=== PATIENT | male | born 1975 | race Caucasian/White ===

== ENCOUNTER 2017-08-09 20:27 | Observation (INO) | payer OTHER ==
[2017-08-09] MEDS ORDERED: Pantoprazole 80 MG in Sodium Chloride 0.9% 10 ML IVPUSH ONE (20:44)
[2017-08-09] MEDS ORDERED: Alum Hydrox/Mag Hydrox/Simeth 15 ML, Metoclopramide 5 MG, Lidocaine 2% 5 ML PO ONE ×3 (20:44)
[2017-08-09] MEDS ORDERED: Sodium Chloride 0.9% 1,000 ML IV ONE (20:44)
[2017-08-09 21:33] LABS: CHLORIDE,CL 108 mmol/L (98-110); SODIUM,NA 138 mmol/L (136-146)
[2017-08-09] MEDS ORDERED: Ketorolac 30 MG/ML SDV IVPUSH ONE (21:42)
--- NOTE | 2017-08-09 21:54 | EDM.PDOC ---
<Reema Starkey - Last Filed: 08/09/17 21:49> ED HPI GENERAL MEDICAL PROBLEM - General Chief Complaint: Abdominal Pain Stated Complaint: ABDOMINAL PAIN Time Seen by Provider: 08/09/17 20:45 Source of Information: Reports: Patient History Limitations: Reports: No Limitations - History of Present Illness INITIAL COMMENTS - FREE TEXT/NARRATIVE: HISTORY AND PHYSICAL: History of present illness: [Patient comes to the emergency room complaining of abdominal pain. States that the symptoms started one hour and came on suddenly while he was watching TV. Pain starts in his epigastric area and moves throughout his abdomen. No history of abdominal pain or surgeries. He's had no nausea or vomiting. Denies any known family history of gallbladder disease. Has a history of irritable bowel with frequent diarrhea. Had normal bowel movements today. Appetite is been normal. No recent illness or infection. No cough, chest pain, shortness of breath or difficulty breathing. He has had some low back discomfort for the past couple of weeks but he does not believe this is related to his abdominal pain. Father recently with history of CVD and CAD] Review of systems: As per history of present illness and below otherwise all systems reviewed and negative. Past medical history: As per history of present illness and as reviewed below otherwise noncontributory. Surgical history: As per history of present illness and as reviewed below otherwise noncontributory. Social history: No reported history of drug or alcohol abuse. Family history: As per history of present illness and as reviewed below otherwise noncontributory. Physical exam: Gen.: Well-developed well-nourished male in no acute distress. Certainly appears nontoxic and is not diaphoretic. HEENT: Atraumatic, normocephalic. Oral mucous membranes are pink and moist. His neck is supple and there is no lymphadenopathy. Lungs: Clear to auscultation, breath sounds equal bilaterally. Heart: S1S2, regular rate and rhythm. Abdomen: Bowel sounds are normoactive throughout. His abdomen is soft and nondistended. He is tender throughout his entire abdomen but is significantly worse with palpation over his epigastric and right upper quadrant areas. No guarding masses or rebound. No CVA tenderness. for costovertebral tenderness. Pelvis: Stable nontender. Genitourinary: Deferred. Rectal: Deferred. Extremities: Atraumatic, negative for cords or calf pain. No cyanosis or edema to feet or lower legs. Neurovascular unremarkable. Neuro: Awake, alert, oriented. Motor and sensory unremarkable throughout. Exam nonfocal. Diagnostics: [CBC, CMP, UA, amylase, lipase, EKG, troponin, abdominal ultrasound] Therapeutics: [GI cocktail, Protonix 80 mg IV, 1 L normal saline, Toradol 30 mg IV] Impression: [] Plan: [] Definitive disposition and diagnosis as appropriate pending reevaluation and review of above. epigastric Pain Score (Numeric/FACES): 10 - Related Data Allergies Allergy/AdvReac Type Severity Reaction Status Date / Time No Known Allergies Allergy Verified 08/09/17 21:25 Home Meds: Home Meds . [Unable to Verify Home Med List] 08/09/17 [History] Past Medical History - Past Health History Medical/Surgical History: Denies Medical/Surgical History Social & Family History - Family History Family Medical History: Noncontributory - Tobacco Use Smoking Status *Q: Never Smoker Second Hand Smoke Exposure: No - Alcohol Use Days Per Week of Alcohol Use: 0 - Recreational Drug Use Recreational Drug Use: No ED ROS GENERAL - Review of Systems Review Of Systems: ROS reveals no pertinent complaints other than HPI. ED EXAM, GI/ABD - Physical Exam Exam: See Below Course - Vital Signs Last Recorded V/S: Last Vital Signs Temp 36.5 C 08/10/17 00:11 Pulse 84 08/10/17 00:11 Resp 18 08/10/17 00:11 BP 111/69 08/10/17 00:11 Pulse Ox 96 08/10/17 00:11 - Orders/Labs/Meds Orders: Active Orders 24 hr Category Date Time Status EKG Documentation Completion [RC] STAT Care 08/09/17 20:45 Active Abdomen Ltd [US] Stat Exams 08/09/17 21:42 Taken Abdomen Pelvis wo Cont [CT] Stat Exams 08/09/17 23:03 Taken Chest 2V [CR] Stat Exams 08/09/17 23:03 Taken DRUG SCREEN, URINE [URCHEM] Stat Lab 08/10/17 00:17 Uncollected Labs: Laboratory Tests 08/09/17 08/09/17 08/09/17 Range/Units 21:00 21:00 21:11 WBC 15.42 H (4.0-11.0) K/uL RBC 5.52 (4.50-5.90) M/uL Hgb 16.5 (13.0-17.0) g/dL Hct 48.5 (38.0-50.0) % MCV 87.9 (80.0-98.0) fL MCH 29.9 (27.0-32.0) pg MCHC 34.0 (31.0-37.0) g/dL RDW Std Deviation 44.0 (28.0-62.0) fl RDW Coeff of Paula 14 (11.0-15.0) % Plt Count 267 (150-400) K/uL MPV 10.80 (7.40-12.00) fL Neut % (Auto) 89.5 H (48.0-80.0) % Lymph % (Auto) 6.2 L (16.0-40.0) % Schleicher % (Auto) 3.0 (0.0-15.0) % Eos % (Auto) 1.0 (0.0-7.0) % Baso % (Auto) 0.3 (0.0-1.5) % Neut # (Auto) 13.8 H (1.4-5.7) K/uL Lymph # (Auto) 1.0 (0.6-2.4) K/uL Schleicher # (Auto) 0.5 (0.0-0.8) K/uL Eos # (Auto) 0.2 (0.0-0.7) K/uL Baso # (Auto) 0.1 (0.0-0.1) K/uL Nucleated RBC % 0.0 /100WBC Nucleated RBCs # 0 K/uL Sodium 138 (136-146) mmol/L Potassium 4.2 (3.5-5.1) mmol/L Chloride 108 (98-110) mmol/L Carbon Dioxide 18 L (21-31) mmol/L BUN 27 H (6.0-23.0) mg/dL Creatinine 1.1 (0.6-1.5) mg/dL Est Cr Clr Drug Dosing TNP Estimated GFR (MDRD) > 60.0 ml/min Glucose 100 (60-110) mg/dL Calcium 9.4 (8.8-10.8) mg/dL Total Bilirubin 0.9 (0.1-1.5) mg/dL AST 38 (5-40) IU/L ALT 48 (8-54) IU/L Alkaline Phosphatase 104 (40-150) Troponin I < 0.10 (0.0-0.29) NG/ML Total Protein 8.0 (6.0-8.0) g/dL Albumin 4.4 (3.5-5.0) g/dL Globulin 3.6 H (2.0-3.5) g/dL Albumin/Globulin Ratio 1.2 L (1.3-2.8) Lipase 30 (7-80) U/L Urine Color DARK YELLOW Urine Appearance HAZY Urine pH 5.5 (5.0-8.0) Ur Specific [place] 1.015 (1.001-1.035) Urine Protein NEGATIVE (NEGATIVE) mg/dL Urine Glucose (UA) NEGATIVE (NEGATIVE) mg/dL Urine Ketones NEGATIVE (NEGATIVE) mg/dL Urine Occult Blood NEGATIVE (NEGATIVE) Urine Nitrite NEGATIVE (NEGATIVE) Urine Bilirubin NEGATIVE (NEGATIVE) Urine Urobilinogen 0.2 (<2.0) EU/dL Ur Leukocyte Esterase NEGATIVE (NEGATIVE) Urine RBC 0-1 (0-2/HPF) Urine WBC 0-1 (0-5/HPF) Ur Epithelial Cells NOT SEEN (NONE-FEW) Urine Bacteria RARE (NEGATIVE) Meds: Medications Discontinued Medications Generic Name Dose Route Start Last Admin Trade Name Rohanq PRN Reason Stop Dose Admin Al Hydroxide/Mg Hydroxide 15 0 ml 08/09/17 20:44 08/09/17 21:05 ml/ Metoclopramide HCl 5 mg/ PO 08/09/17 20:45 25 each Lidocaine HCl 5 ml ONETIME ONE Administration Hydromorphone HCl 1 mg 08/09/17 22:40 08/09/17 22:53 Dilaudid IVPUSH 08/09/17 22:41 1 mg ONETIME ONE Administration Pantoprazole Sodium 80 mg/ 10 mls @ 300 mls/hr 08/09/17 20:44 08/09/17 21:00 Sodium Chloride IVPUSH 08/09/17 20:45 300 mls/hr NOW ONE Administration Sodium Chloride 1,000 mls @ 999 mls/hr 08/09/17 20:44 08/09/17 21:00 Normal Saline IV 08/09/17 21:44 999 mls/hr STAT ONE Administration Ketorolac Tromethamine 30 mg 08/09/17 21:42 08/09/17 21:50 Toradol IVPUSH 08/09/17 21:43 30 mg ONETIME ONE Administration Departure - Departure Disposition: Refer to Observation Clinical Impression: Abdominal pain - Discharge Information Referrals: Fiona Chavez DO [Primary Care Provider] - Forms: ED Department Discharge - My Orders Last 24 Hours: My Active Orders 08/09/17 23:03 Abdomen Pelvis wo Cont [CT] Stat Chest 2V [CR] Stat 08/10/17 00:17 DRUG SCREEN, URINE [URCHEM] Stat - Assessment/Plan Last 24 Hours: My Active Orders 08/09/17 23:03 Abdomen Pelvis wo Cont [CT] Stat Chest 2V [CR] Stat 08/10/17 00:17 DRUG SCREEN, URINE [URCHEM] Stat <Domingo Berman - Last Filed: 08/10/17 00:18> Departure - Departure Time of Disposition: 00:18 Condition: Good
[2017-08-09] MEDS ORDERED: HYDROmorphone 1 MG/ML Syringe IVPUSH ONE (22:40)
[2017-08-10] MEDS ORDERED: Ketorolac 15 MG/ML SDV IVPUSH PRN (00:42)
[2017-08-10] MEDS ORDERED: Lactated Ringers 1,000 ML IV SCH (00:45)
[2017-08-10] MEDS ORDERED: Ondansetron 4 MG/2 ML SDV IVPUSH PRN (00:48)
[2017-08-10 06:09] LABS: CHLORIDE,CL 113 mmol/L (98-110); SODIUM,NA 138 mmol/L (136-146)
--- NOTE | 2017-08-10 09:23 | PCM.SN ---
- Free Text/Narrative Note: hp dict [id number]
--- NOTE | 2017-08-10 10:32 | HP ---
DATE OF : 1975 PRIMARY CARE PHYSICIAN: Fiona Chavez DO CONSULTING QUESTION: Abdominal pain with leukocytosis. HISTORY OF PRESENT ILLNESS: The patient is a 42-year-old gentleman, does not have any abdominal surgery in the past, complaining of 2-1/2 days of acute onset of right upper quadrant pain radiated to the back after having a big meal 2 days ago. Pain did not subside, seek help in the emergency room, and workup CAT scan is unremarkable with normal appendix. The ultrasound shows unremarkable, however, the patient has a white count of 15 and is admitted for pain management as well as observation. PAST MEDICAL HISTORY: Significant for no diabetes, MA, CVA, or hypertension. The patient denied tobacco, alcohol abuse, and no prior abdominal surgery. ALLERGIES: Please refer to nursing for details. MEDICATION: Please refer to nursing for details. PHYSICAL EXAMINATION: GENERAL: A very pleasant, nice gentleman, in no acute distress. HEENT: Normocephalic, atraumatic. Sclerae anicteric. LUNGS: Clear to auscultation. HEART: Regular rate and rhythm. ABDOMEN: Soft, nondistended. No pulsating, tender midline abdominal structure. No hernia appreciated. Nontender with normal bowel sounds. LABORATORY DATA: White count is 7.5 this morning, down from 15. AST and ALT are mildly elevated above 50 to 60. Total bilirubin is 0.5. UA shows no blood. IMPRESSION: Right upper quadrant pain radiated to the back and was slightly elevated transaminase, concern about maybe passing a stone, but for the time being leukocytosis resolved and advised the patient to continue on a nonfatty diet and follow up with me in 1 week from today and likely resolving biliary colic. The patient also has a history of IBS and has frequent diarrhea. As always, thank you for the kind referral. ELLIE / MARILIA /[id number]
--- NOTE | 2017-08-10 13:33 | US ---
EXAM DATE: 08/10/17 PATIENT'S AGE: 42 Patient: ARTUR VENTURA Facility: [place], [place] Site . Site : 1975 Study: US Abdomen [id number] 10:34:30 PM Ordering Physician: Doctor Vu Final Report: INDICATION: Epigastric pain TECHNIQUE: Ultrasound abdomen limited. Sonographic images of the right upper quadrant were obtained using capellan-scale and color Doppler images. COMPARISON: None FINDINGS: Liver: Normal in size and echotexture. No masses. No intrahepatic biliary dilatation. Gallbladder: No stones or sludge. The gallbladder is contracted. No pericholecystic fluid. Common bile duct: 2 mm. Pancreas: Normal. Right kidney: 11.0 cm in length. Normal echotexture and cortex. No masses, stones, or hydronephrosis. IMPRESSION: Unremarkable right upper quadrant ultrasound. Dictated by Ines Carty MD @ Aug 09 2017 10:39PM (Electronic Signature) Report Signed by Proxy. GUILLE
--- NOTE | 2017-08-10 14:23 | CR ---
EXAM DATE: 08/10/17 PATIENT'S AGE: 42 Patient: ARTUR VENTURA Facility: [place], [place] Site . Site : 1975 Study: XRay Chest [id number] 11:27:56 PM Ordering Physician: Doctor Vu Final Report: INDICATION: Pain, shortness of breath TECHNIQUE: Chest 2 views. COMPARISON: None FINDINGS: Cardiovascular and mediastinum: Heart size and vasculature are normal in caliber and appearance. Mediastinum is within normal limits. Lungs and pleural spaces: Lungs are clear. No sign of infiltrate or mass. No sign of pleural effusion. No pneumothorax. Bones and soft tissues: No significant findings. IMPRESSION: No sign of acute disease. Dictated by Ines Carty MD @ Aug 09 2017 11:30PM (Electronic Signature) Report Signed by Proxy. GUILLE
--- NOTE | 2017-08-10 14:24 | CT ---
EXAM DATE: 08/10/17 PATIENT'S AGE: 42 Patient: ARTUR VENTURA Facility: [place], [place] Site . Site : 1975 Study: CT Abdomen/Pelvis [id number] 11:34:53 PM Ordering Physician: Doctor Vu Final Report: INDICATION: Left-sided abdominal pain. TECHNIQUE: CT abdomen and pelvis without contrast. COMPARISON: No prior CT studies for comparison. FINDINGS: Lower chest: Unremarkable. Tiny calcified granuloma at the medial right lung base on series 2 at 2 image 27. Liver: Unremarkable. Spleen: Unremarkable. Pancreas: Unremarkable. Gallbladder and bile ducts: Unremarkable. Adrenal glands: Unremarkable. Kidneys: Unremarkable. No kidney or ureteral stones and no hydronephrosis. GI tract: Unremarkable. Appendix is normal. Minimal diverticulosis. Vascular structures: Unremarkable. Lymph nodes: Unremarkable. Miscellaneous: Unremarkable. No free air or significant free fluid. Pelvic Organs: Unremarkable. Bones: Unremarkable for age. IMPRESSION: Unremarkable noncontrast CT of the abdomen and pelvis. No urinary tract stones, hydronephrosis, or other cause for left-sided abdominal pain. Minimal degree of sigmoid diverticulosis with no acute diverticulitis or free fluid. Normal appendix. Dictated by Jin Miller MD @ 08/09/2017 11:47:03 PM Dictated by: Jin Miller MD @ 08/09/2017 23:47:09 (Electronic Signature) Report Signed by Proxy. [facility]
== END 2017-08-10 09:55 | disposition home or self-care (01) ==
LOC: MW.ED 20:27 → MW.MS 08-10 00:19
PROVIDERS: ADMIT Surgery; ATTEND Surgery
DX: R10.11 Right upper quadrant pain (principal); D72.829 Elevated white blood cell count, unspecified
CPT/HCPCS: 36415; 71020; 74176; 76705; 80053; 80305; 81001; 82150; 83690; 84484; 85025; 93005; 96361; 96374; 96375; 96376; 99285; A9270; C9113; G0378; J1170; J1885; J7040; J7120; 99282

== ENCOUNTER 2018-12-29 01:39 | Observation (INO) | payer SELFPAY ==
--- NOTE | 2018-12-29 01:46 | EDM.PDOC ---
ED HPI GENERAL MEDICAL PROBLEM - General Chief Complaint: Gastrointestinal Problem Stated Complaint: BACK PAIN, VOMITING, DIARRHEA Time Seen by Provider: 12/29/18 05:01 - History of Present Illness INITIAL COMMENTS - FREE TEXT/NARRATIVE: HISTORY AND PHYSICAL: History of present illness: Patient is a 43-year-old white male history of chronic back problems and comes in tonight with back pain nausea vomiting diarrhea that started after he took some Motrin for some lower back discomfort he did this on an empty stomach and feels that may have been the precipitant. There is no fever chills or other complaints Review of systems: As per history of present illness and below otherwise all systems reviewed and negative. Past medical history: As per history of present illness and as reviewed below otherwise noncontributory. Surgical history: As per history of present illness and as reviewed below otherwise noncontributory. Social history: No reported history of drug or alcohol abuse. Family history: As per history of present illness and as reviewed below otherwise noncontributory. Physical exam: HEENT: Atraumatic, normocephalic, pupils reactive, negative for conjunctival pallor or scleral icterus, mucous membranes dry, throat clear, neck supple, nontender, trachea midline. Lungs: Clear to auscultation, breath sounds equal bilaterally, chest nontender. Heart: S1S2, regular, negative for clicks, rubs, or JVD. Abdomen: Soft, nondistended, nontender. Negative for masses or hepatosplenomegaly. Negative for costovertebral tenderness. Pelvis: Stable nontender. Genitourinary: Deferred. Rectal: Deferred. Extremities: Atraumatic, negative for cords or calf pain. Neurovascular unremarkable. Neuro: Awake, alert, oriented. Cranial nerves II through XII unremarkable. Cerebellum unremarkable. Motor and sensory unremarkable throughout. Exam nonfocal. Diagnostics: CBC CMP lipase UA UDS influenza screen Therapeutics: Saline 1 L bolus Zofran 4 mg IV Impression: #1 gastroenteritis #2 dehydration #3 chronic back pain Definitive disposition and diagnosis as appropriate pending reevaluation and review of above. - Related Data Allergies Allergy/AdvReac Type Severity Reaction Status Date / Time No Known Allergies Allergy Verified 12/29/18 01:42 Home Meds: Home Meds Fenofibrate Nanocrystallized [Fenofibrate] 20 mg PO ASDIRECTED 08/10/17 [History ] Testosterone Cypionate [Depo-Testosterone] 200 mg IM ASDIRECTED 08/10/17 [ History] Past Medical History - Past Health History Medical/Surgical History: Denies Medical/Surgical History HEENT History: Reports: None Cardiovascular History: Reports: High Cholesterol Respiratory History: Reports: Sleep Apnea Gastrointestinal History: Reports: Irritable Bowel Syndrome Musculoskeletal History: Reports: Arthritis, Back Pain, Chronic Neurological History: Reports: None Psychiatric History: Reports: None Endocrine/Metabolic History: Reports: None Hematologic History: Reports: None Immunologic History: Reports: None Oncologic (Cancer) History: Reports: None Dermatologic History: Reports: None - Infectious Disease History Infectious Disease History: Reports: None Social & Family History - Family History Family Medical History: Noncontributory HEENT: Reports: None Cardiac: Reports: CAD, High Cholesterol, Hypertension, [place] Respiratory: Reports: None GI: Reports: None : Reports: None OBGYN: Reports: Musculoskeletal: Reports: Arthritis, Gout Neurological: Reports: None Psychiatric: Reports: None Endocrine/Metabolic: Reports: Diabetes, Type I, Diabetes, type II Hematologic: Reports: None Immunologic: Reports: None Dermatologic: Reports: None Oncologic: Reports: Prostate, Skin - Caffeine Use Caffeine Use: Reports: Energy Drinks ED ROS GENERAL - Review of Systems Review Of Systems: ROS reveals no pertinent complaints other than HPI. ED EXAM, GENERAL - Physical Exam Exam: See Below (See dictation) Course - Vital Signs Last Recorded V/S: Last Vital Signs Temp 37.1 C 12/29/18 04:00 Pulse 73 12/29/18 04:00 Resp 18 12/29/18 04:00 BP 87/45 L 12/29/18 04:00 Pulse Ox 97 12/29/18 04:00 - Orders/Labs/Meds Orders: Active Orders 24 hr Category Date Time Status Abdomen Pelvis wo Cont [CT] Stat Exams 12/29/18 02:35 Taken CULTURE BLOOD [BC] Stat Lab 12/29/18 04:13 Received CULTURE BLOOD [BC] Stat Lab 12/29/18 04:20 Received DRUG SCREEN, URINE [URCHEM] Stat Lab 12/29/18 04:50 Received UA RFX ANGELIA AND CULT IF INDIC [URIN] Stat Lab 12/29/18 01:51 Received Levofloxacin/Dextrose 5%-Water [Levaquin in D5W 750 MG/ Med 12/29/18 04:00 Active 150 ML] 750 mg Premix Bag 1 bag IV ONETIME Blood Culture x2 Reflex Set [OM.PC] Stat Oth 12/29/18 03:57 Ordered Medication Orders Levofloxacin/Dextrose 750 mg/ (Premix) 150 mls @ 100 mls/hr IV ONETIME ONE Stop: 12/29/18 05:29 Last Admin: 12/29/18 04:48 Dose: 100 mls/hr Labs: Laboratory Tests 12/29/18 12/29/18 12/29/18 Range/Units 01:57 01:57 04:20 WBC 22.75 H (4.0-11.0) K/uL RBC 6.17 H (4.50-5.90) M/uL Hgb 19.1 H (13.0-17.0) g/dL Hct 54.9 H (38.0-50.0) % MCV 89.0 (80.0-98.0) fL MCH 31.0 (27.0-32.0) pg MCHC 34.8 (31.0-37.0) g/dL RDW Std Deviation 44.9 (28.0-62.0) fl RDW Coeff of Paula 14 (11.0-15.0) % Plt Count 282 (150-400) K/uL MPV 10.50 (7.40-12.00) fL Neut % (Auto) RESIDENTIAL SALES REP Lymph % (Auto) RESIDENTIAL SALES REP Boyle % (Auto) RESIDENTIAL SALES REP Eos % (Auto) RESIDENTIAL SALES REP Baso % (Auto) RESIDENTIAL SALES REP Neut # (Auto) RESIDENTIAL SALES REP Lymph # (Auto) RESIDENTIAL SALES REP Boyle # (Auto) RESIDENTIAL SALES REP Eos # (Auto) RESIDENTIAL SALES REP Baso # (Auto) RESIDENTIAL SALES REP Add Manual Diff YES Neutrophils % (Manual) 90 H (48.0-80.0) % Band Neutrophils % 6 % Lymphocytes % (Manual) 1 L (16.0-40.0) % Monocytes % (Manual) 3 (0.0-15.0) % Nucleated RBC % 0.0 /100WBC Absolute Seg Neuts 20.5 H (1.4-5.7) Band Neutrophils # 1.4 Lymphocytes # (Manual) 0.2 L (0.6-2.4) Monocytes # (Manual) 0.7 (0.0-0.8) Nucleated RBCs # 0 K/uL Lactate 1.3 (0.20-2.00) mmol/L Sodium 139 (136-148) mmol/L Potassium 4.5 (3.5-5.1) mmol/L Chloride 101 (98-107) mmol/L Carbon Dioxide 23.3 (21.0-32.0) mmol/L BUN 25 H (7.0-18.0) mg/dL Creatinine 2.3 H (0.8-1.3) mg/dL Est Cr Clr Drug Dosing 42.76 mL/min Estimated GFR (MDRD) 31.2 ml/min Glucose 162 H (74-106) mg/dL Calcium 10.7 H (8.5-10.1) mg/dL Total Bilirubin 1.1 H (0.2-1.0) mg/dL AST 21 (15-37) IU/L ALT 48 (14-63) IU/L Alkaline Phosphatase 83 (46-116) U/L Total Protein 9.2 H (6.4-8.2) g/dL Albumin 4.9 (3.4-5.0) g/dL Globulin 4.3 H (2.6-4.0) g/dL Albumin/Globulin Ratio 1.1 (0.9-1.6) Lipase 129 (73-393) U/L Urine Color Urine Appearance Urine pH (5.0-8.0) Ur Specific [place] (1.001-1.035) Urine Protein (NEGATIVE) mg/dL Urine Glucose (UA) (NEGATIVE) mg/dL Urine Ketones (NEGATIVE) mg/dL Urine Occult Blood (NEGATIVE) Urine Nitrite (NEGATIVE) Urine Bilirubin (NEGATIVE) Urine Urobilinogen (<2.0) EU/dL Ur Leukocyte Esterase (NEGATIVE) 12/29/18 Range/Units 04:57 WBC (4.0-11.0) K/uL RBC (4.50-5.90) M/uL Hgb (13.0-17.0) g/dL Hct (38.0-50.0) % MCV (80.0-98.0) fL MCH (27.0-32.0) pg MCHC (31.0-37.0) g/dL RDW Std Deviation (28.0-62.0) fl RDW Coeff of Paula (11.0-15.0) % Plt Count (150-400) K/uL MPV (7.40-12.00) fL Neut % (Auto) Lymph % (Auto) Boyle % (Auto) Eos % (Auto) Baso % (Auto) Neut # (Auto) Lymph # (Auto) [place] # (Auto) Eos # (Auto) Baso # (Auto) Add Manual Diff Neutrophils % (Manual) (48.0-80.0) % Band Neutrophils % % Lymphocytes % (Manual) (16.0-40.0) % Monocytes % (Manual) (0.0-15.0) % Nucleated RBC % /100WBC Absolute Seg Neuts (1.4-5.7) Band Neutrophils # Lymphocytes # (Manual) (0.6-2.4) Monocytes # (Manual) (0.0-0.8) Nucleated RBCs # K/uL Lactate (0.20-2.00) mmol/L Sodium (136-148) mmol/L Potassium (3.5-5.1) mmol/L Chloride (98-107) mmol/L Carbon Dioxide (21.0-32.0) mmol/L BUN (7.0-18.0) mg/dL Creatinine (0.8-1.3) mg/dL Est Cr Clr Drug Dosing mL/min Estimated GFR (MDRD) ml/min Glucose (74-106) mg/dL Calcium (8.5-10.1) mg/dL Total Bilirubin (0.2-1.0) mg/dL AST (15-37) IU/L ALT (14-63) IU/L Alkaline Phosphatase (46-116) U/L Total Protein (6.4-8.2) g/dL Albumin (3.4-5.0) g/dL Globulin (2.6-4.0) g/dL Albumin/Globulin Ratio (0.9-1.6) Lipase (73-393) U/L Urine Color YELLOW Urine Appearance CLOUDY Urine pH 5.5 (5.0-8.0) Ur Specific [place] >= 1.030 (1.001-1.035) Urine Protein >=300 H (NEGATIVE) mg/dL Urine Glucose (UA) NEGATIVE (NEGATIVE) mg/dL Urine Ketones NEGATIVE (NEGATIVE) mg/dL Urine Occult Blood TRACE-INTACT H (NEGATIVE) Urine Nitrite NEGATIVE (NEGATIVE) Urine Bilirubin MODERATE H (NEGATIVE) Urine Urobilinogen 0.2 (<2.0) EU/dL Ur Leukocyte Esterase NEGATIVE (NEGATIVE) Meds: Medications Generic Name Dose Route Start Last Admin Trade Name Freq PRN Reason Stop Dose Admin Levofloxacin/Dextrose 750 mg/ 150 mls @ 100 mls/hr 12/29/18 04:00 12/29/18 04 :48 Premix IV 12/29/18 05:29 100 mls/hr ONETIME ONE Administration Discontinued Medications Generic Name Dose Route Start Last Admin Trade Name Rohanq PRN Reason Stop Dose Admin Hydromorphone HCl 1 mg 12/29/18 02:40 12/29/18 02:44 Dilaudid IVPUSH 12/29/18 02:41 1 mg ONETIME ONE Administration Sodium Chloride 1,000 mls @ 999 mls/hr 12/29/18 01:49 12/29/18 02:05 Normal Saline IV 12/29/18 02:49 999 mls/hr .Bolus ONE Administration Piperacillin Sod/Tazobactam 50 mls @ 100 mls/hr 12/29/18 04:00 12/29/18 04:10 Sod 3.375 gm/ Sodium Chloride IV 12/29/18 04:29 100 mls/hr ONETIME ONE Administration Ketorolac Tromethamine 30 mg 12/29/18 02:08 12/29/18 02:27 Toradol IVPUSH 12/29/18 02:09 30 mg ONETIME ONE Administration Ondansetron HCl 4 mg 12/29/18 01:49 12/29/18 02:05 Zofran IVPUSH 12/29/18 01:50 4 mg ONETIME ONE Administration Departure - Departure Time of Disposition: 05:01 Disposition: Refer to Observation Condition: Good Clinical Impression: Enteritis, Elevated serum creatinine - Discharge Information Referrals: Santo Srinivasan MD [Primary Care Provider] - Forms: ED Department Discharge - My Orders Last 24 Hours: My Active Orders 12/29/18 01:51 UA RFX ANGELIA AND CULT IF INDIC [URIN] Stat 12/29/18 02:35 Abdomen Pelvis wo Cont [CT] Stat 12/29/18 03:57 Blood Culture x2 Reflex Set [OM.PC] Stat 12/29/18 04:00 Levofloxacin/Dextrose 5%-Water [Levaquin in D5W 750 MG/150 ML] 750 mg Premix Bag 1 bag IV ONETIME 12/29/18 04:13 CULTURE BLOOD [BC] Stat 12/29/18 04:20 CULTURE BLOOD [BC] Stat 12/29/18 04:50 DRUG SCREEN, URINE [URCHEM] Stat - Assessment/Plan Last 24 Hours: My Active Orders 12/29/18 01:51 UA RFX ANGELIA AND CULT IF INDIC [URIN] Stat 12/29/18 02:35 Abdomen Pelvis wo Cont [CT] Stat 12/29/18 03:57 Blood Culture x2 Reflex Set [OM.PC] Stat 12/29/18 04:00 Levofloxacin/Dextrose 5%-Water [Levaquin in D5W 750 MG/150 ML] 750 mg Premix Bag 1 bag IV ONETIME 12/29/18 04:13 CULTURE BLOOD [BC] Stat 12/29/18 04:20 CULTURE BLOOD [BC] Stat 12/29/18 04:50 DRUG SCREEN, URINE [URCHEM] Stat
[2018-12-29] MEDS ORDERED: Ondansetron 4 MG/2 ML SDV IVPUSH ONE (01:49)
[2018-12-29] MEDS ORDERED: Sodium Chloride 0.9% 1,000 ML IV ONE (01:49)
[2018-12-29] MEDS ORDERED: Ketorolac 30 MG/ML SDV IVPUSH ONE (02:08)
--- NOTE | 2018-12-29 02:33 | CR ---
INDICATION: Chest pain and vomiting COMPARISON: None available. FINDINGS: An erect single view of the chest was obtained at 0157 hours. The lungs are clear. No focal or diffuse infiltrates are present. There is no sign of aspiration. The heart is normal in size. The mediastinum is normal in appearance. The osseous structures are normal in appearance for the patient`s age. IMPRESSION: Normal chest single view. Dictated by Abhay Carpio MD @ Dec 29 2018 2:31AM Signed by Dr. Abhay Carpio @ Dec 29 2018 2:32AM
[2018-12-29] MEDS ORDERED: HYDROmorphone 1 MG/ML Syringe IVPUSH ONE (02:40)
[2018-12-29] MEDS ORDERED: Piperacillin/Tazobactam 3.375 GM in Sodium Chloride 0.9% 50 ML IV ONE (04:00)
[2018-12-29] MEDS ORDERED: Levofloxacin/Dextrose 5%-Water 750 MG in Premix Bag 1 BAG IV ONE (04:00)
[2018-12-29] MEDS: Sodium Chloride 0.9% 1,000 ML IV ONE ×2 (05:15→05:16)
[2018-12-29] MEDS ORDERED: Acetaminophen 325 MG Tab PO PRN (06:19)
[2018-12-29] MEDS ORDERED: Ketorolac 30 MG/ML SDV IM PRN (06:19)
[2018-12-29] MEDS ORDERED: Ondansetron 4 MG Tab.DIS PO PRN (06:19)
[2018-12-29] MEDS ORDERED: Sodium Chloride 0.9% 1,000 ML IV SCH (06:30)
--- NOTE | 2018-12-29 09:39 | PCM.HP ---
<Samantha Day - Last Filed: 12/29/18 13:10> H&P History of Present Illness - General Date of Service: 12/29/18 Admit Problem/Dx: Admission Diagnosis/Problem Admission Diagnosis/Problem Enteritis - History of Present Illness Initial Comments - Free Text/Narative: The patient is a 43 year old male who presented to the ER with 2-3 hour history of back pain, nausea,vomiting, and diarrhea. He has chronic back pain. He denies any fever/chills, black/bloody stools, abdominal pain, shortness of breath, or chest pain. He denies recent sick contacts or exposure to new foods. Since admission he has not had any additional symptoms of nausea, vomiting, or diarrhea. He states his back pain is improved. In the ER, workup found an elevated WBC of 22.75, elevated hemoglobin of 19.1, and elevated creatinine of 2.3. A CT of the ab/pelvis showed mild diffuse dilation of small bowel suggestive of enteritis. He was given dose of Levaquin , Zosyn, Zofran and started on IVF. lower back Pain Score (Numeric/FACES): 6 - Related Data Allergies/Adverse Reactions: Allergies Allergy/AdvReac Type Severity Reaction Status Date / Time No Known Allergies Allergy Verified 12/29/18 01:42 Home Medications: Home Meds Fenofibrate Nanocrystallized [Fenofibrate] 20 mg PO ASDIRECTED 08/10/17 [History ] Testosterone Cypionate [Depo-Testosterone] 200 mg IM ASDIRECTED 08/10/17 [ History] Past Medical History - Past Health History Medical/Surgical History: Denies Medical/Surgical History HEENT History: Reports: None Cardiovascular History: Reports: High Cholesterol Respiratory History: Reports: Sleep Apnea Other Respiratory History: hx sleep apnea, denies currently Gastrointestinal History: Reports: Irritable Bowel Syndrome Musculoskeletal History: Reports: Arthritis, Back Pain, Chronic Neurological History: Reports: None Psychiatric History: Reports: None Other Endocrine/Metabolic History: low T Hematologic History: Reports: None Immunologic History: Reports: None Oncologic (Cancer) History: Reports: None Dermatologic History: Reports: None - Infectious Disease History Infectious Disease History: Reports: None Social & Family History - Family History Family Medical History: Noncontributory HEENT: Reports: None Cardiac: Reports: CAD, High Cholesterol, Hypertension, [place] Respiratory: Reports: None GI: Reports: None : Reports: None OBGYN: Reports: Musculoskeletal: Reports: Arthritis, Gout Neurological: Reports: None Psychiatric: Reports: None Endocrine/Metabolic: Reports: Diabetes, Type I, Diabetes, type II Hematologic: Reports: None Immunologic: Reports: None Dermatologic: Reports: None Oncologic: Reports: Prostate, Skin - Tobacco Use Smoking Status *Q: Never Smoker Second Hand Smoke Exposure: No - Caffeine Use Caffeine Use: Reports: Energy Drinks - Recreational Drug Use Recreational Drug Use: No H&P Review of Systems - Review of Systems: Review Of Systems: See Below General: Reports: No Symptoms HEENT: Reports: No Symptoms Pulmonary: Reports: No Symptoms Cardiovascular: Reports: No Symptoms Gastrointestinal: Reports: Diarrhea, Nausea, Vomiting. Denies: Abdominal Pain Genitourinary: Reports: No Symptoms Musculoskeletal: Reports: Back Pain Skin: Reports: No Symptoms Psychiatric: Reports: No Symptoms Neurological: Reports: No Symptoms Hematologic/Lymphatic: Reports: No Symptoms Immunologic: Reports: No Symptoms Exam - Exam Exam: See Below - Vital Signs Vital Signs: Last Vital Signs Temp 98.3 F 12/29/18 07:25 Pulse 85 12/29/18 07:25 Resp 16 12/29/18 07:25 BP 125/58 L 12/29/18 07:25 Pulse Ox 96 12/29/18 07:25 Weight: 94.438 kg - Exam General: Alert, Oriented, Cooperative HEENT: Conjunctiva Clear, EOMI, Mucosa Moist & [place], Posterior Pharynx Clear, Pupils Equal, Pupils Reactive Lungs: Clear to Auscultation, Normal Respiratory Effort Cardiovascular: Regular Rate, Regular Rhythm GI/Abdominal Exam: Normal Bowel Sounds, Soft, Non-Tender, No Distention Extremities: No Pedal Edema Skin: Warm, Dry, Intact Neuro Extensive - Mental Status: Alert, Oriented x3 Psychiatric: Alert, Normal Affect, Normal Mood - Patient Data Lab Results Last 24 hrs: Laboratory Results - last 24 hr 12/29/18 12/29/18 12/29/18 Range/Units 01:57 01:57 04:20 WBC 22.75 H (4.0-11.0) K/uL RBC 6.17 H (4.50-5.90) M/uL Hgb 19.1 H (13.0-17.0) g/dL Hct 54.9 H (38.0-50.0) % MCV 89.0 (80.0-98.0) fL MCH 31.0 (27.0-32.0) pg MCHC 34.8 (31.0-37.0) g/dL RDW Std Deviation 44.9 (28.0-62.0) fl RDW Coeff of Paula 14 (11.0-15.0) % Plt Count 282 (150-400) K/uL MPV 10.50 (7.40-12.00) fL Neut % (Auto) MICA PLATE LAYER Lymph % (Auto) MICA PLATE LAYER [place] % (Auto) MICA PLATE LAYER Eos % (Auto) MICA PLATE LAYER Baso % (Auto) MICA PLATE LAYER Neut # (Auto) MICA PLATE LAYER Lymph # (Auto) MICA PLATE LAYER [place] # (Auto) MICA PLATE LAYER Eos # (Auto) MICA PLATE LAYER Baso # (Auto) MICA PLATE LAYER Add Manual Diff YES Neutrophils % (Manual) 90 H (48.0-80.0) % Band Neutrophils % 6 % Lymphocytes % (Manual) 1 L (16.0-40.0) % Monocytes % (Manual) 3 (0.0-15.0) % Nucleated RBC % 0.0 /100WBC Absolute Seg Neuts 20.5 H (1.4-5.7) Band Neutrophils # 1.4 Lymphocytes # (Manual) 0.2 L (0.6-2.4) Monocytes # (Manual) 0.7 (0.0-0.8) Nucleated RBCs # 0 K/uL Lactate 1.3 (0.20-2.00) mmol/L Sodium 139 (136-148) mmol/L Potassium 4.5 (3.5-5.1) mmol/L Chloride 101 (98-107) mmol/L Carbon Dioxide 23.3 (21.0-32.0) mmol/L BUN 25 H (7.0-18.0) mg/dL Creatinine 2.3 H (0.8-1.3) mg/dL Est Cr Clr Drug Dosing 42.76 mL/min Estimated GFR (MDRD) 31.2 ml/min Glucose 162 H (74-106) mg/dL Calcium 10.7 H (8.5-10.1) mg/dL Total Bilirubin 1.1 H (0.2-1.0) mg/dL AST 21 (15-37) IU/L ALT 48 (14-63) IU/L Alkaline Phosphatase 83 (46-116) U/L Total Protein 9.2 H (6.4-8.2) g/dL Albumin 4.9 (3.4-5.0) g/dL Globulin 4.3 H (2.6-4.0) g/dL Albumin/Globulin Ratio 1.1 (0.9-1.6) Lipase 129 (73-393) U/L Urine Color Urine Appearance Urine pH (5.0-8.0) Ur Specific [place] (1.001-1.035) Urine Protein (NEGATIVE) mg/dL Urine Glucose (UA) (NEGATIVE) mg/dL Urine Ketones (NEGATIVE) mg/dL Urine Occult Blood (NEGATIVE) Urine Nitrite (NEGATIVE) Urine Bilirubin (NEGATIVE) Urine Ictotest Urine Urobilinogen (<2.0) EU/dL Ur Leukocyte Esterase (NEGATIVE) Urine RBC (0-2/HPF) Urine WBC (0-5/HPF) Ur Epithelial Cells (NONE-FEW) Calcium Oxalate Crystal (NEGATIVE) Amorphous Sediment (NEGATIVE) Urine Bacteria (NEGATIVE) Hyaline Casts (0-2/LPF) Coarse Granular Casts (NEGATIVE) Urine Mucus (NONE-MOD) Urine Opiates Screen (NEGATIVE) Ur Oxycodone Screen (NEGATIVE) Urine Methadone Screen (NEGATIVE) Ur Barbiturates Screen (NEGATIVE) Ur Phencyclidine Scrn (NEGATIVE) Ur Amphetamine Screen (NEGATIVE) U Methamphetamines Scrn (NEGATIVE) U Benzodiazepines Scrn (NEGATIVE) U Cocaine Metab Screen (NEGATIVE) U Marijuana (THC) Screen (NEGATIVE) 12/29/18 12/29/18 Range/Units 04:50 04:57 WBC (4.0-11.0) K/uL RBC (4.50-5.90) M/uL Hgb (13.0-17.0) g/dL Hct (38.0-50.0) % MCV (80.0-98.0) fL MCH (27.0-32.0) pg MCHC (31.0-37.0) g/dL RDW Std Deviation (28.0-62.0) fl RDW Coeff of Paula (11.0-15.0) % Plt Count (150-400) K/uL MPV (7.40-12.00) fL Neut % (Auto) Lymph % (Auto) [place] % (Auto) Eos % (Auto) Baso % (Auto) Neut # (Auto) Lymph # (Auto) [place] # (Auto) Eos # (Auto) Baso # (Auto) Add Manual Diff Neutrophils % (Manual) (48.0-80.0) % Band Neutrophils % % Lymphocytes % (Manual) (16.0-40.0) % Monocytes % (Manual) (0.0-15.0) % Nucleated RBC % /100WBC Absolute Seg Neuts (1.4-5.7) Band Neutrophils # Lymphocytes # (Manual) (0.6-2.4) Monocytes # (Manual) (0.0-0.8) Nucleated RBCs # K/uL Lactate (0.20-2.00) mmol/L Sodium (136-148) mmol/L Potassium (3.5-5.1) mmol/L Chloride (98-107) mmol/L Carbon Dioxide (21.0-32.0) mmol/L BUN (7.0-18.0) mg/dL Creatinine (0.8-1.3) mg/dL Est Cr Clr Drug Dosing mL/min Estimated GFR (MDRD) ml/min Glucose (74-106) mg/dL Calcium (8.5-10.1) mg/dL Total Bilirubin (0.2-1.0) mg/dL AST (15-37) IU/L ALT (14-63) IU/L Alkaline Phosphatase (46-116) U/L Total Protein (6.4-8.2) g/dL Albumin (3.4-5.0) g/dL Globulin (2.6-4.0) g/dL Albumin/Globulin Ratio (0.9-1.6) Lipase (73-393) U/L Urine Color YELLOW Urine Appearance CLOUDY Urine pH 5.5 (5.0-8.0) Ur Specific [place] >= 1.030 (1.001-1.035) Urine Protein >=300 H (NEGATIVE) mg/dL Urine Glucose (UA) NEGATIVE (NEGATIVE) mg/dL Urine Ketones NEGATIVE (NEGATIVE) mg/dL Urine Occult Blood TRACE-INTACT H (NEGATIVE) Urine Nitrite NEGATIVE (NEGATIVE) Urine Bilirubin MODERATE H (NEGATIVE) Urine Ictotest POSITIVE Urine Urobilinogen 0.2 (<2.0) EU/dL Ur Leukocyte Esterase NEGATIVE (NEGATIVE) Urine RBC 0-2 (0-2/HPF) Urine WBC 0-3 (0-5/HPF) Ur Epithelial Cells FEW (NONE-FEW) Calcium Oxalate Crystal RARE (NEGATIVE) Amorphous Sediment MODERATE (NEGATIVE) Urine Bacteria 2+ H (NEGATIVE) Hyaline Casts 2-5 (0-2/LPF) Coarse Granular Casts 0-3 (NEGATIVE) Urine Mucus MODERATE (NONE-MOD) Urine Opiates Screen NEGATIVE (NEGATIVE) Ur Oxycodone Screen NEGATIVE (NEGATIVE) Urine Methadone Screen NEGATIVE (NEGATIVE) Ur Barbiturates Screen NEGATIVE (NEGATIVE) Ur Phencyclidine Scrn NEGATIVE (NEGATIVE) Ur Amphetamine Screen NEGATIVE (NEGATIVE) U Methamphetamines Scrn NEGATIVE (NEGATIVE) U Benzodiazepines Scrn NEGATIVE (NEGATIVE) U Cocaine Metab Screen NEGATIVE (NEGATIVE) U Marijuana (THC) Screen NEGATIVE (NEGATIVE) Result Diagrams: 12/29/18 11:55 12/29/18 11:55 James Results Last 24 hrs: Microbiology 12/29/18 02:49 Influenza Type A Antigen Screen - Final Nasopharyngeal Swab NEGATIVE INFLUENZA A VIRUS AG Influenza Type B Antigen Screen - Final NEGATIVE INFLUENZA B VIRUS AG - Problem List (1) Nausea & vomiting SNOMED Code(s): 10978077 ICD Code: R11.2 - NAUSEA WITH VOMITING, UNSPECIFIED Status: Acute (2) Diarrhea SNOMED Code(s): 40078036 ICD Code: R19.7 - DIARRHEA, UNSPECIFIED Status: Acute (3) Leukocytosis SNOMED Code(s): 722736939, 832349940 ICD Code: D72.829 - ELEVATED WHITE BLOOD CELL COUNT, UNSPECIFIED Status: Acute (4) Elevated hemoglobin SNOMED Code(s): 662265884 ICD Code: D58.2 - OTHER HEMOGLOBINOPATHIES Status: Acute (5) WILBER (acute kidney injury) SNOMED Code(s): 06994924 ICD Code: N17.9 - ACUTE KIDNEY FAILURE, UNSPECIFIED Status: Acute (6) Chronic back pain SNOMED Code(s): 593429455 ICD Code: M54.9 - DORSALGIA, UNSPECIFIED; G89.29 - OTHER CHRONIC PAIN Status: Chronic (7) Enteritis SNOMED Code(s): 52552675 ICD Code: K52.9 - NONINFECTIVE GASTROENTERITIS AND COLITIS, UNSPECIFIED Status: Acute Problem List Initiated/Reviewed/Updated: Yes Orders Last 24hrs: Active Orders 24 hr Category Date Time Status Patient Status [ADT] Stat ADT 12/29/18 05:02 Active Oxygen Therapy [RC] PRN Care 12/29/18 06:19 Active Up ad Leonor [RC] ASDIRECTED Care 12/29/18 06:19 Active VTE/DVT Education [RC] PER UNIT ROUTINE Care 12/29/18 06:19 Active Vital Signs [RC] Q4H Care 12/29/18 06:19 Active Regular Diet [DIET] Diet 12/29/18 Breakfast Active Abdomen Pelvis wo Cont [CT] Stat Exams 12/29/18 02:35 Taken BASIC METABOLIC PANEL,BMP [CHEM] Routine Lab 12/29/18 12:00 Ordered CBC WITH AUTO DIFF [HEME] Routine Lab 12/29/18 12:00 Ordered CULTURE BLOOD [BC] Stat Lab 12/29/18 04:13 Received CULTURE BLOOD [BC] Stat Lab 12/29/18 04:20 Received Acetaminophen [Tylenol] Med 12/29/18 06:19 Active 650 mg PO Q4H PRN Ketorolac [Toradol] Med 12/29/18 06:19 Active 30 mg IM Q6H PRN Ondansetron [Zofran ODT] Med 12/29/18 06:19 Active 4 mg PO Q6H PRN Sodium Chloride 0.9% [Normal Saline] 1,000 ml Med 12/29/18 06:30 Active IV ASDIRECTED Blood Culture x2 Reflex Set [OM.PC] Stat Oth 12/29/18 03:57 Ordered Resuscitation Status Routine Resus Stat 12/29/18 06:19 Ordered Medication Orders Acetaminophen (Tylenol) 650 mg PO Q4H PRN PRN Reason: Pain (Mild 1-3)/fever Sodium Chloride (Normal Saline) 1,000 mls @ 125 mls/hr IV ASDIRECTED FORMERLY [facility], 1928–1983 Last Admin: 12/29/18 07:36 Dose: 125 mls/hr Ketorolac Tromethamine (Toradol) 30 mg IM Q6H PRN PRN Reason: Pain (moderate 4-6) Ondansetron HCl (Zofran Odt) 4 mg PO Q6H PRN PRN Reason: nausea, able to take PO Assessment/Plan Comment:: 1. Admit for observation 2. Code status- Full 3. Vitals per routine 4. I/Os per routine 5. Diet- Regular 6. DVT prophylaxis with SCDs 7. Nausea,vomiting, diarrhea likely enteritis- improved-will continue IVF, pain/ nausea control. If continued episodes of diarrhea, consider stool studies. 8. Leukocytosis and Hemoconcentration- possibly reactive. Will recheck CBC this afternoon. 9. WILBER- continue IVF, will recheck BMP this afternoon. The patient was admitted to the medical surgical floor and hydrated with normal saline and his nausea, vomiting, and diarrhea resolved. We repeated a CBC and BMP and he had improvement in his white count down from 23 to 15, hemoglobin down from 19 to 16, and creatinine down from 2.3 to 1.5. This afternoon he was feeling much better and wanted to go home. We discussed the importance of staying hydrated and pushing fluids at home. Patient voiced understanding. No changes in home medications. Symptoms to report to physician include fever/ chills, chest pain, shortness of breath, abdominal pain, nausea/vomiting/ diarrhea, erythema, discharge/drainage, or not improving as expected. Patient should follow up with PCP within 1 weeks time with repeat BMP to make sure kidney function back to normal. <Fer Jiménez M - Last Filed: 12/29/18 17:27> H&P History of Present Illness - General Admit Problem/Dx: Admission Diagnosis/Problem Admission Diagnosis/Problem Enteritis - History of Present Illness Initial Comments - Free Text/Narative: I have examined the patient independently of Samantha Day MD, resident. I have discussed the case with her. I have reviewed and agree with the plan of care as outlined by her. Please see orders. Exam - Vital Signs Vital Signs: Last Vital Signs Temp 36.7 C 12/29/18 12:00 Pulse 89 12/29/18 12:00 Resp 16 12/29/18 12:00 BP 118/71 12/29/18 12:00 Pulse Ox 97 12/29/18 12:00 - Patient Data Lab Results Last 24 hrs: Laboratory Results - last 24 hr 12/29/18 12/29/18 12/29/18 Range/Units 01:57 01:57 04:20 WBC 22.75 H (4.0-11.0) K/uL RBC 6.17 H (4.50-5.90) M/uL Hgb 19.1 H (13.0-17.0) g/dL Hct 54.9 H (38.0-50.0) % MCV 89.0 (80.0-98.0) fL MCH 31.0 (27.0-32.0) pg MCHC 34.8 (31.0-37.0) g/dL RDW Std Deviation 44.9 (28.0-62.0) fl RDW Coeff of Paula 14 (11.0-15.0) % Plt Count 282 (150-400) K/uL MPV 10.50 (7.40-12.00) fL Neut % (Auto) MICA PLATE LAYER Lymph % (Auto) MICA PLATE LAYER [place] % (Auto) MICA PLATE LAYER Eos % (Auto) MICA PLATE LAYER Baso % (Auto) MICA PLATE LAYER Neut # (Auto) MICA PLATE LAYER Lymph # (Auto) MICA PLATE LAYER [place] # (Auto) MICA PLATE LAYER Eos # (Auto) MICA PLATE LAYER Baso # (Auto) MICA PLATE LAYER Add Manual Diff YES Neutrophils % (Manual) 90 H (48.0-80.0) % Band Neutrophils % 6 % Lymphocytes % (Manual) 1 L (16.0-40.0) % Monocytes % (Manual) 3 (0.0-15.0) % Nucleated RBC % 0.0 /100WBC Absolute Seg Neuts 20.5 H (1.4-5.7) Band Neutrophils # 1.4 Lymphocytes # (Manual) 0.2 L (0.6-2.4) Monocytes # (Manual) 0.7 (0.0-0.8) Nucleated RBCs # 0 K/uL Lactate 1.3 (0.20-2.00) mmol/L Sodium 139 (136-148) mmol/L Potassium 4.5 (3.5-5.1) mmol/L Chloride 101 (98-107) mmol/L Carbon Dioxide 23.3 (21.0-32.0) mmol/L BUN 25 H (7.0-18.0) mg/dL Creatinine 2.3 H (0.8-1.3) mg/dL Est Cr Clr Drug Dosing 42.76 mL/min Estimated GFR (MDRD) 31.2 ml/min Glucose 162 H (74-106) mg/dL Calcium 10.7 H (8.5-10.1) mg/dL Total Bilirubin 1.1 H (0.2-1.0) mg/dL AST 21 (15-37) IU/L ALT 48 (14-63) IU/L Alkaline Phosphatase 83 (46-116) U/L Total Protein 9.2 H (6.4-8.2) g/dL Albumin 4.9 (3.4-5.0) g/dL Globulin 4.3 H (2.6-4.0) g/dL Albumin/Globulin Ratio 1.1 (0.9-1.6) Lipase 129 (73-393) U/L Urine Color Urine Appearance Urine pH (5.0-8.0) Ur Specific [place] (1.001-1.035) Urine Protein (NEGATIVE) mg/dL Urine Glucose (UA) (NEGATIVE) mg/dL Urine Ketones (NEGATIVE) mg/dL Urine Occult Blood (NEGATIVE) Urine Nitrite (NEGATIVE) Urine Bilirubin (NEGATIVE) Urine Ictotest Urine Urobilinogen (<2.0) EU/dL Ur Leukocyte Esterase (NEGATIVE) Urine RBC (0-2/HPF) Urine WBC (0-5/HPF) Ur Epithelial Cells (NONE-FEW) Calcium Oxalate Crystal (NEGATIVE) Amorphous Sediment (NEGATIVE) Urine Bacteria (NEGATIVE) Hyaline Casts (0-2/LPF) Coarse Granular Casts (NEGATIVE) Urine Mucus (NONE-MOD) Urine Opiates Screen (NEGATIVE) Ur Oxycodone Screen (NEGATIVE) Urine Methadone Screen (NEGATIVE) Ur Barbiturates Screen (NEGATIVE) Ur Phencyclidine Scrn (NEGATIVE) Ur Amphetamine Screen (NEGATIVE) U Methamphetamines Scrn (NEGATIVE) U Benzodiazepines Scrn (NEGATIVE) U Cocaine Metab Screen (NEGATIVE) U Marijuana (THC) Screen (NEGATIVE) 12/29/18 12/29/18 12/29/18 Range/Units 04:50 04:57 11:55 WBC 15.28 H (4.0-11.0) K/uL RBC 5.24 (4.50-5.90) M/uL Hgb 16.0 (13.0-17.0) g/dL Hct 46.9 (38.0-50.0) % MCV 89.5 (80.0-98.0) fL MCH 30.5 (27.0-32.0) pg MCHC 34.1 (31.0-37.0) g/dL RDW Std Deviation 46.1 (28.0-62.0) fl RDW Coeff of Paula 14 (11.0-15.0) % Plt Count 218 (150-400) K/uL MPV 10.50 (7.40-12.00) fL Neut % (Auto) 91.9 H Lymph % (Auto) 2.2 L [place] % (Auto) 5.6 Eos % (Auto) 0.1 Baso % (Auto) 0.2 Neut # (Auto) 14.0 H Lymph # (Auto) 0.3 L [place] # (Auto) 0.9 H Eos # (Auto) 0.0 Baso # (Auto) 0.0 Add Manual Diff Neutrophils % (Manual) (48.0-80.0) % Band Neutrophils % % Lymphocytes % (Manual) (16.0-40.0) % Monocytes % (Manual) (0.0-15.0) % Nucleated RBC % 0.0 /100WBC Absolute Seg Neuts (1.4-5.7) Band Neutrophils # Lymphocytes # (Manual) (0.6-2.4) Monocytes # (Manual) (0.0-0.8) Nucleated RBCs # 0 K/uL Lactate (0.20-2.00) mmol/L Sodium (136-148) mmol/L Potassium (3.5-5.1) mmol/L Chloride (98-107) mmol/L Carbon Dioxide (21.0-32.0) mmol/L BUN (7.0-18.0) mg/dL Creatinine (0.8-1.3) mg/dL Est Cr Clr Drug Dosing mL/min Estimated GFR (MDRD) ml/min Glucose (74-106) mg/dL Calcium (8.5-10.1) mg/dL Total Bilirubin (0.2-1.0) mg/dL AST (15-37) IU/L ALT (14-63) IU/L Alkaline Phosphatase (46-116) U/L Total Protein (6.4-8.2) g/dL Albumin (3.4-5.0) g/dL Globulin (2.6-4.0) g/dL Albumin/Globulin Ratio (0.9-1.6) Lipase (73-393) U/L Urine Color YELLOW Urine Appearance CLOUDY Urine pH 5.5 (5.0-8.0) Ur Specific [place] >= 1.030 (1.001-1.035) Urine Protein >=300 H (NEGATIVE) mg/dL Urine Glucose (UA) NEGATIVE (NEGATIVE) mg/dL Urine Ketones NEGATIVE (NEGATIVE) mg/dL Urine Occult Blood TRACE-INTACT H (NEGATIVE) Urine Nitrite NEGATIVE (NEGATIVE) Urine Bilirubin MODERATE H (NEGATIVE) Urine Ictotest POSITIVE Urine Urobilinogen 0.2 (<2.0) EU/dL Ur Leukocyte Esterase NEGATIVE (NEGATIVE) Urine RBC 0-2 (0-2/HPF) Urine WBC 0-3 (0-5/HPF) Ur Epithelial Cells FEW (NONE-FEW) Calcium Oxalate Crystal RARE (NEGATIVE) Amorphous Sediment MODERATE (NEGATIVE) Urine Bacteria 2+ H (NEGATIVE) Hyaline Casts 2-5 (0-2/LPF) Coarse Granular Casts 0-3 (NEGATIVE) Urine Mucus MODERATE (NONE-MOD) Urine Opiates Screen NEGATIVE (NEGATIVE) Ur Oxycodone Screen NEGATIVE (NEGATIVE) Urine Methadone Screen NEGATIVE (NEGATIVE) Ur Barbiturates Screen NEGATIVE (NEGATIVE) Ur Phencyclidine Scrn NEGATIVE (NEGATIVE) Ur Amphetamine Screen NEGATIVE (NEGATIVE) U Methamphetamines Scrn NEGATIVE (NEGATIVE) U Benzodiazepines Scrn NEGATIVE (NEGATIVE) U Cocaine Metab Screen NEGATIVE (NEGATIVE) U Marijuana (THC) Screen NEGATIVE (NEGATIVE) 12/29/18 Range/Units 11:55 WBC (4.0-11.0) K/uL RBC (4.50-5.90) M/uL Hgb (13.0-17.0) g/dL Hct (38.0-50.0) % MCV (80.0-98.0) fL MCH (27.0-32.0) pg MCHC (31.0-37.0) g/dL RDW Std Deviation (28.0-62.0) fl RDW Coeff of Paula (11.0-15.0) % Plt Count (150-400) K/uL MPV (7.40-12.00) fL Neut % (Auto) Lymph % (Auto) [place] % (Auto) Eos % (Auto) Baso % (Auto) Neut # (Auto) Lymph # (Auto) [place] # (Auto) Eos # (Auto) Baso # (Auto) Add Manual Diff Neutrophils % (Manual) (48.0-80.0) % Band Neutrophils % % Lymphocytes % (Manual) (16.0-40.0) % Monocytes % (Manual) (0.0-15.0) % Nucleated RBC % /100WBC Absolute Seg Neuts (1.4-5.7) Band Neutrophils # Lymphocytes # (Manual) (0.6-2.4) Monocytes # (Manual) (0.0-0.8) Nucleated RBCs # K/uL Lactate (0.20-2.00) mmol/L Sodium 140 (136-148) mmol/L Potassium 4.3 (3.5-5.1) mmol/L Chloride 107 (98-107) mmol/L Carbon Dioxide 20.0 L (21.0-32.0) mmol/L BUN 26 H (7.0-18.0) mg/dL Creatinine 1.5 H (0.8-1.3) mg/dL Est Cr Clr Drug Dosing 65.56 mL/min Estimated GFR (MDRD) 51.1 ml/min Glucose 115 H (74-106) mg/dL Calcium 8.1 L (8.5-10.1) mg/dL Total Bilirubin (0.2-1.0) mg/dL AST (15-37) IU/L ALT (14-63) IU/L Alkaline Phosphatase (46-116) U/L Total Protein (6.4-8.2) g/dL Albumin (3.4-5.0) g/dL Globulin (2.6-4.0) g/dL Albumin/Globulin Ratio (0.9-1.6) Lipase (73-393) U/L Urine Color Urine Appearance Urine pH (5.0-8.0) Ur Specific [place] (1.001-1.035) Urine Protein (NEGATIVE) mg/dL Urine Glucose (UA) (NEGATIVE) mg/dL Urine Ketones (NEGATIVE) mg/dL Urine Occult Blood (NEGATIVE) Urine Nitrite (NEGATIVE) Urine Bilirubin (NEGATIVE) Urine Ictotest Urine Urobilinogen (<2.0) EU/dL Ur Leukocyte Esterase (NEGATIVE) Urine RBC (0-2/HPF) Urine WBC (0-5/HPF) Ur Epithelial Cells (NONE-FEW) Calcium Oxalate Crystal (NEGATIVE) Amorphous Sediment (NEGATIVE) Urine Bacteria (NEGATIVE) Hyaline Casts (0-2/LPF) Coarse Granular Casts (NEGATIVE) Urine Mucus (NONE-MOD) Urine Opiates Screen (NEGATIVE) Ur Oxycodone Screen (NEGATIVE) Urine Methadone Screen (NEGATIVE) Ur Barbiturates Screen (NEGATIVE) Ur Phencyclidine Scrn (NEGATIVE) Ur Amphetamine Screen (NEGATIVE) U Methamphetamines Scrn (NEGATIVE) U Benzodiazepines Scrn (NEGATIVE) U Cocaine Metab Screen (NEGATIVE) U Marijuana (THC) Screen (NEGATIVE) Result Diagrams: 12/29/18 11:55 12/29/18 11:55 James Results Last 24 hrs: Microbiology 12/29/18 02:49 Influenza Type A Antigen Screen - Final Nasopharyngeal Swab NEGATIVE INFLUENZA A VIRUS AG Influenza Type B Antigen Screen - Final NEGATIVE INFLUENZA B VIRUS AG Orders Last 24hrs: Active Orders 24 hr Category Date Time Status Patient Status [ADT] Stat ADT 12/29/18 05:02 Active Oxygen Therapy [RC] PRN Care 12/29/18 06:19 Active Ready for Discharge [RC] PER UNIT ROUTINE Care 12/29/18 13:09 Active Up ad Leonor [RC] ASDIRECTED Care 12/29/18 06:19 Active VTE/DVT Education [RC] PER UNIT ROUTINE Care 12/29/18 06:19 Active Vital Signs [RC] Q4H Care 12/29/18 06:19 Active CULTURE BLOOD [BC] Stat Lab 12/29/18 04:13 Received CULTURE BLOOD [BC] Stat Lab 12/29/18 04:20 Received Blood Culture x2 Reflex Set [OM.PC] Stat Oth 12/29/18 03:57 Ordered Resuscitation Status Routine Resus Stat 12/29/18 06:19 Ordered
--- NOTE | 2018-12-29 11:44 | CT ---
EXAM DATE: 12/29/18 PATIENT'S AGE: 43 Patient: ARTUR VENTURA Facility: [facility] Site Site : [id number] Study: CT-Abdomen/Pelvis [id number]/27/2019 3:15:27 AM Ordering Physician: THEODORE Final Report: INDICATION: Abdominal pain COMPARISON: None available TECHNIQUE: CT examination of the abdomen and pelvis was performed without contrast enhancement using 3 mm thick axial sections from the lung bases through the pubic symphysis. Oral contrast was not administered. Please note that all CT scans at this facility use dose modulation, iterative reconstruction, and/or weight-based dosing when appropriate to reduce radiation dose to as low as reasonably achievable. FINDINGS: In the abdomen, the unenhanced liver, spleen, pancreas, and adrenals are normal in appearance. The unenhanced kidneys are normal in appearance. The gallbladder is normal in appearance. The abdominal aorta is normal in caliber with no sign of dilatation. There is no sign of retroperitoneal mass or adenopathy. There is mild nonspecific dilatation of the small bowel containing fluid. There is no sign of any wall thickening or inflammatory reaction around the small bowel. The findings are suggestive of an enteritis. The stomach and colon in the abdomen are normal in appearance. In the pelvis, the appendix is normal in appearance with no sign of inflammatory process. The loops of small bowel and colon in the pelvis are normal in appearance. The prostate is normal in appearance. The urinary bladder is normal in appearance. There is no sign of pelvic or inguinal mass or adenopathy. There are small fat containing bilateral indirect inguinal hernias. There is a small calcified subpleural granuloma in the posterior-medial right lung base. The lung bases are otherwise clear. The osseous structures are normal in appearance for the patient`s age. IMPRESSION: Mild diffuse dilatation of small bowel containing fluid, suggesting a mild, nonspecific enteritis. Otherwise normal CT of the abdomen without contrast. Otherwise normal CT of the pelvis without contrast. Please note that all CT scans at this facility use dose modulation, iterative reconstruction, and/or weight-based dosing when appropriate to reduce radiation dose to as low as reasonably achievable. Dictated by Abhay Carpio MD @ Dec 29 2018 3:38AM Signed by: Abhay Carpio MD @12/29/2018 3:43:49 AM (Electronic Signature) Report Signed by Proxy. GUILLE
[2018-12-29] MEDS ORDERED: Ketorolac 30 MG/ML SDV IVPUSH PRN (12:05)
== END 2018-12-29 14:45 | disposition home or self-care (01) ==
LOC: MW.ED 01:39 → MW.MS 05:02
PROVIDERS: ADMIT Internal Medicine; ATTEND Internal Medicine
DX: K58.0 Irritable bowel syndrome with diarrhea (principal); E78.00 Pure hypercholesterolemia, unspecified; G47.30 Sleep apnea, unspecified; M19.90 Unspecified osteoarthritis, unspecified site; D72.829 Elevated white blood cell count, unspecified; D58.2 Other hemoglobinopathies; N17.9 Acute kidney failure, unspecified; G89.29 Other chronic pain; M54.9 Dorsalgia, unspecified
CPT/HCPCS: 36415; 71045; 74176; 80048; 80053; 80305; 81001; 83605; 83690; 85025; 87040; 87804; 96361; 96365; 96367; 96375; 99285; G0378; J1170; J1885; J1956; J2405; J2543; J7040; J7050

== ENCOUNTER 2019-02-19 15:20 | Emergency (ER) | payer SELFPAY ==
[2019-02-19] MEDS ORDERED: Morphine 2 MG/ML Syringe IVPUSH ONE (16:35)
[2019-02-19 16:54] LABS: CHLORIDE,CL 104 mmol/L (98-107); SODIUM,NA 140 mmol/L (136-148)
--- NOTE | 2019-02-19 16:56 | CT ---
Pain vertex cellulitis. Technique noncontrast head CT scan. Coronal sagittal reformatted images obtained. FINDINGS: Axial noncontrast images through the brain parenchyma demonstrates no acute intracranial hemorrhage or mass. No midline shift. No abnormal extra-axial air or fluid collections. Paranasal sinuses mastoid air cells skull appear unremarkable. Mild soft tissue stranding in the high vertex. There is no underlying osseous abnormalities or abscess within the soft tissues. Impression: 1. No acute intracranial hemorrhage or mass. 2. Mild subcutaneous soft tissue stranding in the vertex. No underlying osseous abnormality. Please note that all CT scans at this facility use dose modulation, iterative reconstruction, and/or weight-based dosing when appropriate to reduce radiation dose to as low as reasonably achievable. Dictated by Aranza Jennings MD @ Feb 19 2019 4:52PM Signed by Dr. Aranza Jennings @ Feb 19 2019 4:55PM
[2019-02-19] MEDS ORDERED: Lidocaine 1% with EPINEPHrine 1:100,000 20 ML MDV ONE (17:07)
[2019-02-19] MEDS ORDERED: Lidocaine 1% with EPINEPHrine 1:100,000 20 ML MDV INJECT ONE (17:17)
[2019-02-19] MEDS ORDERED: Ketorolac 30 MG/ML SDV IVPUSH ONE (17:29)
[2019-02-19] MEDS ORDERED: Ertapenem 1 GM, Lidocaine 1% 3.2 ML IM SCH ×2 (17:30)
--- NOTE | 2019-02-19 17:33 | EDM.PDOC ---
ED HPI GENERAL MEDICAL PROBLEM - General Chief Complaint: Bite:Animal, Insect Stated Complaint: PAIN ON TOP OFF HEAD Time Seen by Provider: 02/19/19 17:30 Source of Information: Reports: Patient - History of Present Illness INITIAL COMMENTS - FREE TEXT/NARRATIVE: HISTORY AND PHYSICAL: History of present illness: []Patient presents with a dime-sized lesion on vertex tender to the touch mildly pink somewhat fluctuant more edematous than abscess appearing I did CT of his head to rule out intracranial processes patient is having significant pain did require morphine and Toradol for pain control additional lanced the area to see if there is any drainage however no exudate was produced CT is consistent with cellulitis with stranding on the scalp no gas formation No fever nausea vomiting chills sweats Review of systems: As per history of present illness and below otherwise all systems reviewed and negative. Past medical history: As per history of present illness and as reviewed below otherwise noncontributory. Surgical history: As per history of present illness and as reviewed below otherwise noncontributory. Social history: No reported history of drug or alcohol abuse. Family history: As per history of present illness and as reviewed below otherwise noncontributory. Physical exam: HEENT: Atraumatic, normocephalic, pupils reactive, negative for conjunctival pallor or scleral icterus, mucous membranes moist, throat clear, neck supple, nontender, trachea midline. Lungs: Clear to auscultation, breath sounds equal bilaterally, chest nontender. Heart: S1S2, regular, negative for clicks, rubs, or JVD. Abdomen: Soft, nondistended, nontender. Negative for masses or hepatosplenomegaly. Negative for costovertebral tenderness. Pelvis: Stable nontender. Genitourinary: Deferred. Rectal: Deferred. Extremities: Atraumatic, negative for cords or calf pain. Neurovascular unremarkable. Neuro: Awake, alert, oriented. Cranial nerves II through XII unremarkable. Cerebellum unremarkable. Motor and sensory unremarkable throughout. Exam nonfocal. Diagnostics: [CBC CMP blood cultures ] Therapeutics: [Morphine 2 mg Toradol 30 mg ] I&D performed no exudate for culture Invanz 1 g IM Bactrim Return if symptoms persist or worsen Follow-up with primary care in 2 weeks sooner as needed Impression: [ cellulitis vertex] Definitive disposition and diagnosis as appropriate pending reevaluation and review of above. Head Pain Score (Numeric/FACES): 8 - Related Data Allergies Allergy/AdvReac Type Severity Reaction Status Date / Time No Known Allergies Allergy Verified 02/19/19 15:34 Home Meds: Home Meds Fenofibrate Nanocrystallized [Fenofibrate] 20 mg PO ASDIRECTED 08/10/17 [History ] Testosterone Cypionate [Depo-Testosterone] 200 mg IM ASDIRECTED 08/10/17 [ History] Past Medical History - Past Health History Medical/Surgical History: Denies Medical/Surgical History HEENT History: Reports: None Cardiovascular History: Reports: High Cholesterol Respiratory History: Reports: Sleep Apnea Other Respiratory History: hx sleep apnea, denies currently Gastrointestinal History: Reports: Irritable Bowel Syndrome Genitourinary History: Reports: Renal Calculus Musculoskeletal History: Reports: Arthritis, Back Pain, Chronic Neurological History: Reports: None Psychiatric History: Reports: None Endocrine/Metabolic History: Reports: None Other Endocrine/Metabolic History: low T Hematologic History: Reports: None Immunologic History: Reports: None Oncologic (Cancer) History: Reports: None Dermatologic History: Reports: None - Infectious Disease History Infectious Disease History: Reports: None Social & Family History - Family History Family Medical History: Noncontributory HEENT: Reports: None Cardiac: Reports: CAD, High Cholesterol, Hypertension, CA Respiratory: Reports: None GI: Reports: None : Reports: None OBGYN: Reports: Musculoskeletal: Reports: Arthritis, Gout Neurological: Reports: None Psychiatric: Reports: None Endocrine/Metabolic: Reports: Diabetes, Type I, Diabetes, type II Hematologic: Reports: None Immunologic: Reports: None Dermatologic: Reports: None Oncologic: Reports: Prostate, Skin - Tobacco Use Smoking Status *Q: Never Smoker Second Hand Smoke Exposure: No - Caffeine Use Caffeine Use: Reports: Coffee - Recreational Drug Use Recreational Drug Use: No ED ROS GENERAL - Review of Systems Review Of Systems: See Below ED EXAM, ANIMAL BITE - Physical Exam Exam: See Below Course - Vital Signs Last Recorded V/S: Last Vital Signs Temp 98.2 F 02/19/19 15:34 Pulse 100 02/19/19 15:34 Resp 16 02/19/19 15:34 BP 145/95 H 02/19/19 15:34 Pulse Ox 96 02/19/19 15:34 - Orders/Labs/Meds Orders: Active Orders 24 hr Category Date Time Status CULTURE BLOOD [BC] Stat Lab 02/19/19 15:55 Received CULTURE BLOOD [BC] Stat Lab 02/19/19 15:55 Received LYME, TOTAL AB TEST/REFLEX [REF] Stat Lab 02/19/19 15:50 Received Ertapenem [INVanz] 1 gm Med 02/19/19 17:30 Active Lidocaine 1% [Xylocaine-MPF 1%] 3.2 ml IM Q24H Ketorolac [Toradol] Med 02/19/19 17:29 Once 30 mg IVPUSH ONETIME ONE Blood Culture x2 Reflex Set [OM.PC] Stat Oth 02/19/19 15:44 Ordered Medication Orders Ertapenem 1 gm/ Lidocaine HCl (3.2 ml) 0 gm IM Q24H ADELINA Ketorolac Tromethamine (Toradol) 30 mg IVPUSH ONETIME ONE Stop: 02/19/19 17:30 Labs: Laboratory Tests 02/19/19 02/19/19 Range/Units 15:55 15:55 WBC 10.11 (4.0-11.0) K/uL RBC 5.68 (4.50-5.90) M/uL Hgb 17.5 H (13.0-17.0) g/dL Hct 50.3 H (38.0-50.0) % MCV 88.6 (80.0-98.0) fL MCH 30.8 (27.0-32.0) pg MCHC 34.8 (31.0-37.0) g/dL RDW Std Deviation 44.1 (28.0-62.0) fl RDW Coeff of Paula 14 (11.0-15.0) % Plt Count 262 (150-400) K/uL MPV 10.60 (7.40-12.00) fL Neut % (Auto) 73.5 (48.0-80.0) % Lymph % (Auto) 15.8 L (16.0-40.0) % Real % (Auto) 8.3 (0.0-15.0) % Eos % (Auto) 1.9 (0.0-7.0) % Baso % (Auto) 0.5 (0.0-1.5) % Neut # (Auto) 7.4 H (1.4-5.7) K/uL Lymph # (Auto) 1.6 (0.6-2.4) K/uL Real # (Auto) 0.8 (0.0-0.8) K/uL Eos # (Auto) 0.2 (0.0-0.7) K/uL Baso # (Auto) 0.1 (0.0-0.1) K/uL Nucleated RBC % 0.0 /100WBC Nucleated RBCs # 0 K/uL Sodium 140 (136-148) mmol/L Potassium 4.3 (3.5-5.1) mmol/L Chloride 104 (98-107) mmol/L Carbon Dioxide 23.6 (21.0-32.0) mmol/L BUN 21 H (7.0-18.0) mg/dL Creatinine 1.1 (0.8-1.3) mg/dL Est Cr Clr Drug Dosing TNP Estimated GFR (MDRD) > 60.0 ml/min Glucose 107 H (74-106) mg/dL Calcium 9.7 (8.5-10.1) mg/dL Total Bilirubin 0.7 (0.2-1.0) mg/dL AST 28 (15-37) IU/L ALT 44 (14-63) IU/L Alkaline Phosphatase 70 (46-116) U/L Total Protein 8.0 (6.4-8.2) g/dL Albumin 4.3 (3.4-5.0) g/dL Globulin 3.7 (2.6-4.0) g/dL Albumin/Globulin Ratio 1.2 (0.9-1.6) Meds: Medications Generic Name Dose Route Start Last Admin Trade Name Freq PRN Reason Stop Dose Admin Ertapenem 1 gm/ Lidocaine HCl 0 gm 02/19/19 17:30 3.2 ml IM Q24H ADELINA Ketorolac Tromethamine 30 mg 02/19/19 17:29 Toradol IVPUSH 02/19/19 17:30 ONETIME ONE Discontinued Medications Generic Name Dose Route Start Last Admin Trade Name Freq PRN Reason Stop Dose Admin Lidocaine/Epinephrine Confirm 02/19/19 17:07 02/19/19 17:18 Xylocaine 1% With Epinephrine 1:100,000 Administered 02/19/19 17:08 Not Given Dose 20 ml .ROUTE .STK-MED ONE Lidocaine/Epinephrine 20 ml 02/19/19 17:17 02/19/19 17:18 Xylocaine 1% With Epinephrine 1:100,000 INJECT 02/19/19 17:18 20 ml ONETIME ONE Administration Morphine Sulfate 2 mg 02/19/19 16:35 02/19/19 16:38 Morphine IVPUSH 02/19/19 16:36 2 mg ONETIME ONE Administration Departure - Departure Time of Disposition: 17:32 Disposition: Home, Self-Care 01 Condition: Good Clinical Impression: Cellulitis - Discharge Information Referrals: PCP,None [Primary Care Provider] - Additional Instructions: The following information is given to patients seen in the emergency department who are being discharged to home. This information is to outline your options for follow-up care. We provide all patients seen in our emergency department with a follow-up referral. The need for follow-up, as well as the timing and circumstances, are variable depending upon the specifics of your emergency department visit. If you don't have a primary care physician on staff, we will provide you with a referral. We always advise you to contact your personal physician following an emergency department visit to inform them of the circumstance of the visit and for follow-up with them and/or the need for any referrals to a consulting specialist. The emergency department will also refer you to a specialist when appropriate. This referral assures that you have the opportunity for follow-up care with a specialist. All of these measure are taken in an effort to provide you with optimal care, which includes your follow-up. Under all circumstances we always encourage you to contact your private physician who remains a resource for coordinating your care. When calling for follow-up care, please make the office aware that this follow-up is from your recent emergency room visit. If for any reason you are refused follow-up, please contact the [facility] emergency department at and asked to speak to the emergency department charge nurse. - My Orders Last 24 Hours: My Active Orders 02/19/19 15:44 Blood Culture x2 Reflex Set [OM.PC] Stat 02/19/19 15:50 LYME, TOTAL AB TEST/REFLEX [REF] Stat 02/19/19 15:55 CULTURE BLOOD [BC] Stat CULTURE BLOOD [BC] Stat 02/19/19 17:29 Ketorolac [Toradol] 30 mg IVPUSH ONETIME ONE 02/19/19 17:30 Ertapenem [INVanz] 1 gm Lidocaine 1% [Xylocaine-MPF 1%] 3.2 ml IM Q24H - Assessment/Plan Last 24 Hours: My Active Orders 02/19/19 15:44 Blood Culture x2 Reflex Set [OM.PC] Stat 02/19/19 15:50 LYME, TOTAL AB TEST/REFLEX [REF] Stat 02/19/19 15:55 CULTURE BLOOD [BC] Stat CULTURE BLOOD [BC] Stat 02/19/19 17:29 Ketorolac [Toradol] 30 mg IVPUSH ONETIME ONE 02/19/19 17:30 Ertapenem [INVanz] 1 gm Lidocaine 1% [Xylocaine-MPF 1%] 3.2 ml IM Q24H
== END 2019-02-19 17:55 | disposition home or self-care (01) ==
LOC: MW.ED 15:20
DX: L03.811 Cellulitis of head [any part, except face] (principal); E78.00 Pure hypercholesterolemia, unspecified; Z79.899 Other long term (current) drug therapy
CPT/HCPCS: 36415; 70450; 80053; 85025; 86618; 87040; 96374; 96375; 99283; J1335; J1885; J2001; J2270

== ENCOUNTER 2019-02-23 10:05 | Emergency (ER) | payer SELFPAY | END 2019-02-23 10:11 | disposition home or self-care (01) | LOC: MW.ED 10:05 | DX: Z53.21 Procedure and treatment not carried out due to patient leaving prior to being seen by health care provider (principal) ==